=== PATIENT | male | born 1990 | race Caucasian/White ===

== ENCOUNTER 2022-09-30 05:47 | Day surgery (SDC) | payer MEDICAID, SELFPAY ==
[2022-09-30] VITALS (7 sets, daily range): BP systolic 99–120; BP diastolic 60–78; PULSE 58–70; RESP 16; TEMP 36.4–36.6; O2SAT 94–100; BMI 28.6
--- NOTE | 2022-09-30 | HEM_PTH ---
PATIENT: TATE ROBB LOC[place] [facility] [place][id number] AGE/SX: 32/M ROOM: RE09/30/[address]: Dr. Waqar Carvalho MD : 1990 BED: DIS: 09/30/2022 SPEC #: [id number] RECD: 09/30/22 11:30 STATUS: HESHAM LULU #: [id number] IAIN: 09/30/22 00:[address]: Waqar Carvalho DEPT: SURGICAL PATHOLOGY RECD BY: Molly Quezada ENTERED: 09/30/22 11:51 SP TYPE: HEMORRHOID OTHR DR: No Primary Care Phys Tissues: HEMORRHOIDS Procedures: Surgery Specimen Level III HEADER OPERATION: EUA, excisional hemorrhoidectomy PRE-OP DIAGNOSIS: Internal hemorrhoids TISSUE SUBMITTED: Hemorrhoids MICROSCOPIC DIAGNOSIS Hemorrhoids, hemorrhoidectomy: Fragments of anorectal mucosa with dilated and congested blood vessels, consistent with hemorrhoids. BLAKE:lanette 10/01/2022 MICROSCOPIC DESCRIPTION Slides are reviewed. GROSS DESCRIPTION Received in fixative is one container labeled with the patient's name and designated hemorrhoids. The specimen consists of multiple pieces of congested and hemorrhagic mucosal tissue measuring in aggregate 2.5 x 1.7 x 1.0 cm. The largest piece is bisected. The entire specimen is submitted in one cassette. / SJ:lanette 09/30/2022 TC:5 [facility]: [id number]
[2022-09-30] MEDS: Lactated Ringers 1,000 ML 15 ML IV (06:28)
--- NOTE | 2022-09-30 07:27 | HP.PCM_ITS ---
History and Physical Date of Admission: 09/30/22 Date of Service:? 09/05/22 MR#: [id number] Acct: [id number] Name:TATE SAMAYOA Rep #: [id number] : 1990 ? ? Provider: Dr. Waqar Carvalho MD Age/Sex:? 32/M ? ? Location: [facility] Status: Signed Intake Vital Signs ? 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 Hemorrhoids Hypertension Family History? Father Hypertension Social History? Smoking Status:? Never smoker alcohol intake:? current substance use type:? does not use HPI HPI HPI: Patient is a 32-year-old male known to me for history of hemorrhoids.? He underwent banding on 07/22/2021 with a good result.? His last visit with me was 08/13/2021.? He reports that he was overall good for last year, however about a month ago he began experiencing pain and pressure from hemorrhoids.? He states that this is continued despite trying to make conservative changes and he now finds that even sometimes hard to sleep at night with the discomfort from his anus.? He reports that approximately a month ago he was having more straining with bowel movements, however, he immediately placed himself on Metamucil and Benefiber and changed his diet.? He notes that this helps him to be more regular and he notices within a day if he misses his fiber.? With this supplementation he experiences a stool 1-2 times per day.? Denies any significant straining and reports his toilet time averages approximately 5 minutes.? Additionally above he is using some dwpy-bhb-ertooac steroid cream for his issue.? He states that he has not been able to do sitz bath's as they remodeled their bathroom and no longer have a bathtub.? He reports at this point he is looking for something more definitive so that he can put this issue out of mind. ROS General General: No weight change, appetite, fatigue, colon cancer, breast cancer or weakness HEENT HEENT: No difficulty swallowing, eye injury, eye surgery, swollen glands or hoarseness Endo Endocrine: No thyroid disease, diabetes mellitus, thyroid cancer, Hair loss, heat intolerance or cold intolerance Skin Skin: No rash or changing moles Musc Musculoskeletal: No back problems, arthritis, rheumatoid arthritis, gout or joint pain Cardio Cardiovascular: Yes high blood pressure; No murmur, pacemaker, heart disease, atrial fibrillation, heart attack, heart stent, palpitations, shortness of breat with exertion or chest pain Psych Psychiatric: No depression, anxiety or hearing voices Resp Respiratory: No shortness of breath, No sleep apnea, No cough, No COPD, No asthma, No emphysema and No wheezing Gastro Gastrointestinal: No abdominal pain, No nausea or vomiting, No diarrhea, No constipation, No blood in stool, No acid reflux, Yes hemorrhoids, No ulcers, No gallbladder problem and No black,tarry stools Ernst Hematologic: No blood thinners, No blood disorders, No bleeding, No anemia and No blood clots Neuro Neurologic: No system reviewed and no additional complaints, except as documented, No as per HPI, No abnormal gait, No abnormal hearing, No abnormal movements, No abnormal speech, No behavioral changes, No burning sensations, No confusion, No convulsions, No disequilibrium, No dizziness, No localized weakness, No frequent falls, No headache(s), No lack of coordination, No loss of vision, No memory loss, No numbness, No other visual disturbances, No radicular pain, No restless legs, No sensory deficit, No syncope, No tingling, No tremor(s), No weakness and No other Exam Const General: cooperative and healthy appearing Orientation: alert, awake and oriented x3 Other: Mild distress from symptoms GI Other: By inspection patient's anus is unremarkable.? Rectal tone is normal.? There is some fullness along the right side of the anal canal with digital rectal exam.? Performing anoscopy I find mildly dilated right anterior and posterior hemorrhoid columns. Assessment and Plan Assessment and Plan (1) Hemorrhoids, internal: ?Status:?Acute ?Comment: This is a 32-year-old male with a longstanding history of hemorrhoids who presents with recurrent symptoms.? Prior to our meeting Mr. Kearney underwent infrared treatment of his hemorrhoids and then I performed banding via a anoscopy on 07/22/2022.? Patient had a very favorable response to this and reports that he went about a year without issue.? However, he experienced more constipation 1 month ago and then recurrence of his issue.? I offered to repeat banding for him given the low-grade of his hemorrhoids, however, patient wishes for something more definitive.? Therefore, I introduced the topic of excisional hemorrhoidectomy and cautioned him against the need for setting aside postoperative recovery time.? 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 I have offered him a prescription for Anusol suppositories and recommended that he try to find a way to perform sitz bath's.? He declines the former but states that he will do his best to attend to the latter recommendation. ?Plan: ? To schedule anorectal exam under anesthesia with excisional hemorrhoidectomy Interval: Health history reviewed and there have been no changes since our recent visit. Procedure and post-procedure expectations reviewed and all questions answered. Proceed to OR for excisional hemorrhoidectomy.
[2022-09-30] MEDS: Cefotetan 2 GM in 0.9% NS 100 ML IV (07:31)
[2022-09-30] MEDS: Bupivacaine 0.25% 30 ML Vial (08:00)
[2022-09-30] MEDS: Lubricating Jelly 60 GM Tube 30 GM (08:00)
[2022-09-30] MEDS: BUPIVACAINE LIPOSOME/PF 20 ML VIAL OPERA.SITE (08:29)
[2022-09-30] MEDS: Dibucaine 30 GM Tube 1 APPLIC (08:29)
--- NOTE | 2022-09-30 09:02 | OP.PCM_ITS ---
Report of Operation Date of Procedure: 09/30/22 Pre-Operative Diagnosis: Internal hemorrhoids refractory to hemorrhoid banding Post-Operative Diagnosis: Same Surgery/Procedure Performed:: Excisional hemorrhoidectomy (right posterior column) Description of Surgical Findings:: ? Engorged right posterior hemorrhoidal column Surgeon: Waqar Carvalho rubber stamp assembler: Danielle Dorantes Type of Anesthesia: General/Supplemental Anesthesiologist: Vasile Aguilar Specimen's removed: Hemorrhoid tissue Drains: None Estimated Blood Loss (mL): 10 Description of Procedure: After appropriate identification in the preoperative holding area, our patient was brought to the operating room where he was positioned for intubation. There he underwent induction with general endotracheal anesthetic on his preoperative bed. Once he was intubated, he was positioned prone on the operating room table taking care to pad pressure points and alleviate a hyperextension of his shoulders. He was then positioned jackknife and tape was used to retract his buttocks. The operative site was prepped and draped in usual sterile fashion. A formal timeout followed to confirm patient and procedure. On inspection we identified primary engorgement of the right posterior hemorrhoidal column. This then became our focus for the procedure. First, I performed and intersphincteric and pudendal block with the use of 0.25% plain bupivacaine. A Hill-Cantor retractor was inserted to the anus and a 2-0 Vicryl was used as a transfixing suture in a [id number] fashion well above the dentate line over the hemorrhoidal inflow to the right posterior column. I then proceeded to use a combination of sharp dissection and electrocautery to remove the mucosa and underlying venous plexus en bloc from the deeper sphincter complex. Ultimately this created a michelle-shaped defect in the mucosa. This defect was then closed by taking bites of each side of the mucosal rent as well as a central bite of the sphincter complex deeply and running the opening closed with a continuous suture. Some redundant tissue at the anal verge was sharply amputated. There was no bleeding at the conclusion of the case and a Proctofoam was inserted transanally before abdominal pads and mesh pants pants were placed as a dressing. Patient was then awoken from anesthetic and transferred to PACU for ongoing recovery. Complications None Admit VTE Documentation VTE Mechan Device Prophylaxis: SCD's
--- NOTE | 2022-09-30 09:03 | DCINST_ITS ---
Discharge Instructions Diet Discharge Diet: No restrictions Activity Discharge Activity: May Drive, May Shower and May Take a Tub Bath (Please do sitz bath's twice daily and after bowel movements. Drying completely afterwards) Lifting Restrictions: Avoid lifting greater than 15 pounds for 2 weeks after surgery Additional Activity Instructions:: Avoid direct sitting is much as possible for first week Dressing / Incision Call your doctor if your incision/area has: Continuous Slow Oozing, Sudden Increased Bleeding, Increased Pain/ Swelling, Foul Smelling Discharge and Swelling at the incision site Call your doctor if you observe: Fever of 101 or Higher Cleanse incision/area with: Soap & Water Follow Up Care Please Follow Up With: Waqar Carvalho MD When: 10-14 days postop Test Results: Test results from this visit will be discussed in further detail at your follow- up appointment, if applicable. Discharge Plan Admission Primary Reason for Your Visit: Excisional hemorrhoidectomy Attending Provider: Waqar Carvalho Primary Care Provider: Care Physician,Verenice Primary Instructions Patient Instructions: Hemorrhoid Surg Dc Discharge Orders/Prescriptions Prescriptions: New diazepam [Valium] 5 mg tablet 5 mg PO TID PRN (Reason: muscle spasm) Qty: 10 0RF No Action metoprolol succinate 25 mg tablet extended release 24 hr 25 mg PO BID multivitamin Tablet 1 tab PO DAILY Referrals / Follow Up: Care Physician,No Primary [Primary Care Provider] - Disposition Disposition (needs filled in before D/C Order can be placed): Home, Self Care
[2022-09-30] MEDS: oxyCODONE 5 MG Tablet PO (09:56)
== END 2022-09-30 12:28 | disposition home or self-care (01) ==
LOC: SDC 05:48 → AC 05:49
PROVIDERS: Referring Provider Surgery; Visit Provider Surgery
PROC: (CPT 46255; principal; 2022-09-30 07:15)
DX: K64.8 Other hemorrhoids (principal); I10 Essential (primary) hypertension
CPT/HCPCS: 46255; 00902; 88304; J7120; J2405